=== PATIENT | male | born 1980 | race African-American/Black ===

== ENCOUNTER 2017-12-25 12:11 | Emergency (ER) | payer OTHER ==
[~2017-12-25] VITALS: Ht 190.5 cm; Wt 102.1 kg
== END 2017-12-25 13:31 | disposition home or self-care (01) ==
LOC: ER 12:11
DX: S61.215A Laceration without foreign body of left ring finger without damage to nail, initial encounter (principal); Z88.0 Allergy status to penicillin; Z88.6 Allergy status to analgesic agent; W45.8XXA Other foreign body or object entering through skin, initial encounter; Y93.G3 Activity, cooking and baking; Y92.89 Other specified places as the place of occurrence of the external cause; Y99.8 Other external cause status